=== PATIENT | female | born 1955 | race Caucasian/White ===

== ENCOUNTER → 2017-10-22 13:56 | Outpatient (CLI) | payer BC, SELFPAY ==
--- NOTE | 2017-10-22 13:59 | XR_ITS ---
XR ankle wt bearing RT min 3V XR ankle wt bearing LT min 3V, Ordering Physician: Vera Yousif DPM Patient Age: 61 years: Female HISTORY: Right and right ankle pain Patient had surgery lt ankle ankle 1.5 years ago due to fracture. Large patient but No diabetes. No CHF TECHNIQUE: Right ankle: 3 views weightbearing left ankle:. 3 views weightbearing COMPARISON :Right ankle April ========= RIGHT ANKLE: 3 views weightbearing ORIF distal fibular fracture. Multiple screws entering laterally. I question there may be a long radiolucent plate of some form a PICC line at distal fibular shaft extending to the lateral malleolus. Multiple screws pass through this. 2. The screws continued through the distal most shaft of the fibula into the tibia. Very subtle lucency seen along these latter screws 2 screws lucency previously questioned but this appearance stable and similar to previous study from April and January last year.. There is some slight narrowing and sclerotic changes about the ankle mortise which may reflect degenerative changes here. Fragmentation and irregularity at the tip of the medial malleolus reflecting old injury and/or degenerative change. Tip of the lateral malleolus remains intact. These features appear stable. Calcaneal spurs again noted. With 7.5 mm plantar calcaneal spur Over 10 mm of spur and Achilles insertion. The 5 lmm lucent area at the posterior aspect the calcaneus is again noted and stable. IMPRESSION.: 1 Post ORIF distal fibular fracture. Stable appearance features noted above. 2. Appear to be developing degenerative changes at right ankle joint. ========= LEFT ANKLE:. 3 views weightbearing Osseous structures are intact at the left ankle. Joint spaces well-maintained. Soft tissue swelling is seen about the left ankle Calcaneal spurs. 13 mm spur at the insertion of Achilles tendon with a just over 10 mm plantar calcaneal spur. IMPRESSION Osseous structures at left ankle appear intact. Soft tissue swelling about the ankle suggested bilateral
== END ==
PROVIDERS: Visit Provider Podiatrist
DX: M25.579 Pain in unspecified ankle and joints of unspecified foot (principal)
CPT/HCPCS: 73610